=== PATIENT | male | born 1960 | race Caucasian/White ===

== ENCOUNTER 2025-01-26 14:17 | Observation (INO) ==
[2025-01-26] MEDS ORDERED: IOPAMIDOL 100 ML BOTTLE IV ONE (14:18)
[2025-01-26] MEDS: ONDANSETRON 4 MG/2 ML VIAL IV ONE (14:51)
[2025-01-26] MEDS: HYDROmorphone 1 MG/ML SYRINGE IV ONE ×2 (14:51→18:27)
[2025-01-26] MEDS: 0.9 % SODIUM CHLORIDE 1,000 ML IV ONE ×2 (14:52→19:55)
[2025-01-26 14:53] LABS: Basophils # (Auto) 0.02 K/mcL (0.00-0.30); Basophils % (Auto) 0.2 % (0.0-2.0); Eosinophils # (Auto) 0.02 K/mcL (0.00-0.70); Eosinophils % (Auto) 0.2 % (0.0-7.0); Hematocrit 45.6 % (40.1-51.0); Hemoglobin 15.4 g/dL (13.7-17.5); Lymphocytes # (Auto) 1.22 K/mcL (1.50-4.80); Lymphocytes % (Auto) 9.2 % (15.5-49.0); Mean Cell Volume 92.5 fL (80.0-100.0); Mean Corpuscular HGB Conc 33.8 g/dL (31.0-36.0); Mean Platelet Volume 9.7 fL (8.8-12.5); Monocytes # (Auto) 0.51 K/mcL (0.10-0.90); Monocytes % (Auto) 3.8 % (1.0-12.0); Neutrophils % (Auto) 86.4 % (38.0-78.0); Platelet Count 199 K/mcL (140-440); RBC 4.93 M/mcL (4.63-6.08); Red Cell Distribution Width 12.4 % (11.5-14.5); WBC 13.3 K/mcL (4.5-11.0)
[2025-01-26 15:10] LABS: ALT/SGPT 16 U/L (<40); AST/SGOT 15 U/L (<40); Albumin 4.6 gm/dL (3.2-5.2); Albumin/Globulin Ratio 1.9 (1.0-2.3); Alkaline Phosphatase 52 U/L (39-117); Bilirubin,Total 0.6 mg/dL (0.1-1.0); Blood Urea Nitrogen 17 mg/dL (8-23); Calcium 9.5 mg/dL (8.6-10.4); Carbon Dioxide 27 mmol/L (22-30); Chloride 101 mmol/L (96-108); Globulin 2.4 gm/dL (2.2-3.7); Glomerular Filtration Rate 62; Glucose 167 mg/dL (70-105); Sodium 141 mmol/L (133-145)
[2025-01-26] MEDS: KETOROLAC 30 MG/ML VIAL IV ONE (15:39)
[2025-01-26 17:00] LABS: Appearance,Urine Clear (Clear); Bacteria,Urine Few /hpf (0); Bilirubin,Urine Negative (Negative); Color,Urine Yellow; Glucose,Urine (UA) Negative (Negative); Ketones,Urine Negative (Negative); Leukocyte Esterase,Urine Negative /uL (Negative); Nitrate,Urine Positive (Negative); Protein,Urine 30 mg/dL (Negative); Specific Gravity,Urine 1.025 (1.000-1.035); Urine Blood Moderate ery/mcL (Negative); Urine RBC 35 /hpf (0-3); Urine Squamous Epithelial Cell 0 /hpf (0-4); Urine WBC 11 /hpf (0-4); Urobilinogen,Urine Normal
[2025-01-26] MEDS: oxyCODONE (PP) 5MG TABLET (#4) PO ONE (17:54)
[2025-01-26] MEDS: ONDANSETRON 4 MG SL ONE (17:55)
[2025-01-26] MEDS: cefTRIAXone 2 GM in DEXTROSE 5% IN WATER 50 ML IV ONE (18:27)
[2025-01-26] MEDS ORDERED: IPRATROPIUM/ALBUTEROL 3 ML AMPUL.NEB NEB PRN (19:34)
[2025-01-26] MEDS ORDERED: DEXTROSE 31 GM ORAL.SUSP PO PRN (19:34)
[2025-01-26] MEDS ORDERED: DEXTROSE 50% 50 ML VIAL IV PRN (19:34)
[2025-01-26] MEDS ORDERED: POTASSIUM CHLORIDE 20 MEQ TABLET PO PRN ×2 (19:34)
[2025-01-26] MEDS ORDERED: SENNOSIDES 1 TABLET PO PRN (19:34)
[2025-01-26] MEDS ORDERED: MAGNESIUM SULFATE 2 GM/50 ML BAG IV PRN (19:34)
[2025-01-26] MEDS ORDERED: POTASSIUM CHLORIDE 40 MEQ in DEXTROSE 5% IN WATER 500 ML IV PRN (19:34)
[2025-01-26] MEDS ORDERED: ONDANSETRON 4 MG/2 ML VIAL IV PRN (19:34)
[2025-01-26] MEDS ORDERED: METOCLOPRAMIDE 10 MG/2 ML VIAL IV PRN (19:34)
[2025-01-26] MEDS ORDERED: oxyCODONE/APAP 5/325MG TABLET PO PRN (19:34)
[2025-01-26] MEDS ORDERED: POLYETHYLENE GLYCOL 3350 17 GM PACKET PO PRN (19:34)
[2025-01-26] MEDS ORDERED: NAPROXEN 250 MG TABLET PO PRN (20:09)
[2025-01-26] MEDS: 0.9 % SODIUM CHLORIDE 10 ML SYRINGE IV SCH (20:16)
[2025-01-26] MEDS: TAMSULOSIN 0.4 MG CAPSULE PO SCH (21:02)
[2025-01-26] MEDS: INSULIN LISPRO 1 UNIT/0.01 ML UNIT SQ SCH (21:02)
[2025-01-26] MEDS: methylPREDNISolone SOD SUCC 125 MG/2 ML VIAL IV SCH (21:02)
[2025-01-26] MEDS: buPROPion 150 MG TAB.SR.12H PO SCH (21:03)
[2025-01-26] MEDS: DOCUSATE SODIUM 100 MG CAPSULE PO SCH (21:03)
[2025-01-26] MEDS: SIMVASTATIN 10 MG TABLET PO SCH (21:03)
[2025-01-26] MEDS: CARVEDILOL 12.5 MG TABLET PO SCH (21:03)
[2025-01-26] MEDS: morphine 4 MG/ML VIAL IV PRN (21:53)
[2025-01-27 06:22] LABS: ALT/SGPT 13 U/L (<40); AST/SGOT 15 U/L (<40); Albumin/Globulin Ratio 1.8 (1.0-2.3); Alkaline Phosphatase 47 U/L (39-117); Bilirubin,Direct < 0.2 mg/dL (0-0.3); Bilirubin,Total 0.3 mg/dL (0.1-1.0); Blood Urea Nitrogen 20 mg/dL (8-23); Carbon Dioxide 25 mmol/L (22-30); Chloride 102 mmol/L (96-108); Globulin 2.2 gm/dL (2.2-3.7); Glomerular Filtration Rate 69; Glucose 187 mg/dL (70-105); Lactate Dehydrogenase 125 U/L (135-225); Phosphorous 3.2 mg/dL (2.5-4.5); Potassium 4.2 mmol/L (3.3-5.1); Sodium 139 mmol/L (133-145); Triglycerides 80 mg/dL (<150); Uric Acid 6.9 mg/dL (2.5-8.0)
[2025-01-27] MEDS: ENOXAPARIN 40 MG/0.4 ML SYRINGE SQ SCH (08:40)
[2025-01-27] MEDS: cefTRIAXone 1 GM VIAL IV SCH (08:43)
[2025-01-27] MEDS: TELMISARTAN 80 MG TABLET PO SCH (08:49)
[2025-01-27 12:41] VITALS: TEMP 97.5; O2SAT 95
[2025-01-28] MEDS ORDERED: OLMESARTAN MEDOXOMIL 20 MG TABLET PO SCH (09:00)
== END 2025-01-27 12:45 | disposition home or self-care (01) ==
LOC: ED 14:17 → MEDSUR 14:17
PROVIDERS: ADMIT Internal Medicine; ATTEND Internal Medicine